=== PATIENT | female | born 1960 | race Asian ===

== ENCOUNTER → 2020-08-27 17:49 | Outpatient (CLI) | payer OTHER, SELFPAY ==
--- NOTE | ~2020-08-27 | MM_ITS ---
EXAMINATION: MM screening [facility] BI w [facility] HISTORY: Screening mammogram TECHNIQUE: Craniocaudal and mediolateral oblique 3-D tomosynthesis images were obtained and synthetic 2-D images were generated. CAD analysis was submitted and interpreted. COMPARISON: 07/26/2019, 01/27/2018, 11/28/2005 BREAST PARENCHYMAL COMPOSITION: There are scattered areas of fibroglandular density. FINDINGS: There is no evidence of suspicious mass, calcification, or architectural distortion to sugg est malignancy in either breast. There has been no suspicious interval change. IMPRESSION: 1. No mammographic evidence of malignancy. 2. Recommend routine screening mammography in one year. BI-RADS Category 1: Negative Reviewed, dictated and finalized at location A. OR SUPPORT ANALYST
== END ==
PROVIDERS: PCP Internal Medicine; Visit Provider Internal Medicine
DX: Z12.31 Encounter for screening mammogram for malignant neoplasm of breast (principal)
CPT/HCPCS: 77063; 77067

== ENCOUNTER → 2020-11-23 12:58 | Outpatient (CLI) | payer OTHER, SELFPAY ==
--- NOTE | ~2020-11-23 | DEXA_ITS ---
Bone Density Report Name: Tarah Levin Age: 60 Sex: Female Ethnicity: Date of : 1960 Indication: postmenopausal; screening for osteoporosis; height loss; Referring Provider: JUAN PABLO LEAL Study: Bone densitometry was performed. Exam Date: November 23, 2020 Accession number: [id number] Bone Density: Region BMD T-score Z-score Classification AP Spine (L1-L4) 0.929 -1.1 0.4 Osteopenia Femoral Neck (Left) 0.677 -1.5 -0.2 Osteopenia Total Hip (Left) 0.870 -0.6 0.4 Normal Femoral Neck (Right) 0.710 -1.3 0.0 Osteopenia Total Hip (Right) 0.900 -0.3 0.6 Normal Total Hip Mean 0.885 -0.5 0.5 Normal World Health Organization criteria for BMD impression classify patients as: Normal (T-score at or above -1.0), Osteopenia (T-score between -1.0 and -2.5), or Osteoporosis (T-score at or below -2.5). 10-year Fracture Risk(1): Major Osteoporotic Fracture 4.5% Hip Fracture 0.4% Reported Risk Factors: [place] (), Neck BMD=0.677, BMI=25.6 (1) FRAX(R) Version 3.08. Fracture probability calculated for an untreated patient. Fracture probability may be lower if the patient has received treatment. Clinical Information Provided by Patient: Patient maximum height was 59 Menopause Age: 54 No regular weight bearing exercise Drinks caffeinated beverages Onset of menses at age 12 Number of children 3 Impression: The patient has low bone mass, based on the Left Femoral Neck T-score. The patient has an estimated ten-year risk of hip fracture of 0.4% and an estimated ten-year risk of major fracture of 4.5%, based on the WHO FRAX algorithm. Discussion: BONE DENSITY IS LOW AT ONE OR MORE SKELETAL SITES. This patient's lowest T-score is low at one or more skeletal sites. It meets the World Health Organization's (WHO) criteria for ?low bone mass? (T-score between -1.0 and -2.5). The patient's 10-year risk of fracture as calculated by FRAX is less than the threshold where pharmacological therapy is recommended by the National Osteoporosis Foundation (NOF). However, all treatment decisions require clinical judgment and consideration of individual patient factors, including patient preferences, comorbidities, previous drug use, risk factors not captured in the FRAX model (e.g., frailty, falls, vitamin D deficiency, increased bone turnover, interval significant decline in bone density) and possible under or overestimation of fracture risk by FRAX. The patient should follow a healthful lifestyle (good nutrition with adequate calcium and vitamin D, and appropriate weight-bearing exercise). Follow-Up: Consider repeating this study in 2 to 3 years to reassess this patient's status, or sooner if there is some new clinical indication. Reported by: [facility] on 11/23/2020 1:29:00 PM.
== END ==
PROVIDERS: PCP Internal Medicine; Visit Provider Internal Medicine
DX: Z78.0 Asymptomatic menopausal state (principal); M85.88 Other specified disorders of bone density and structure, other site; M85.852 Other specified disorders of bone density and structure, left thigh; M85.851 Other specified disorders of bone density and structure, right thigh
CPT/HCPCS: 77080

== ENCOUNTER → 2023-05-15 13:26 | Outpatient (CLI) | payer BC, SELFPAY ==
--- NOTE | ~2023-05-15 | MM_ITS ---
EXAMINATION: MM screening [facility] BI w [facility] HISTORY: Screening mammogram TECHNIQUE: Craniocaudal and mediolateral oblique 3-D tomosynthesis images were obtained and synthetic 2-D images were generated. CAD analysis was submitted and interpreted. COMPARISON: 08/27/2020, 07/26/2019, 01/27/2018 BREAST PARENCHYMAL COMPOSITION: There are scattered areas of fibroglandular density. FINDINGS: No suspicious mass, calcification, or architectural distortion are identified in either yola ast to suggest malignancy. There has been no suspicious interval change. IMPRESSION: 1. No mammographic evidence of malignancy. 2. Recommend routine screening mammography in one year. BI-RADS Category 1: Negative Reviewed, dictated and finalized at location A.
== END ==
PROVIDERS: PCP Nurse Practitioner; Visit Provider Nurse Practitioner
DX: Z12.31 Encounter for screening mammogram for malignant neoplasm of breast (principal)
CPT/HCPCS: 77063; 77067

== ENCOUNTER 2023-09-24 15:13 | Outpatient (CLI) | payer BC, SELFPAY ==
--- NOTE | 2023-09-24 15:31 | ECG_ITS ---
Measurements Intervals Adams Rate: 70 P: 23 DC: 178 QRS: 41 QRSD: 77 T: 56 QT: 391 QTc: 424 Interpretive Statements SINUS RHYTHM NO PREVIOUS ECG AVAILABLE FOR COMPARISON Electronically Signed On 09-24-2023 19:19:39 SKIN INSTALLER by Jennifer Jeffery M.D.
== END 2023-09-24 15:14 | disposition home or self-care (01) ==
PROVIDERS: PCP Family Medicine; Visit Provider Nurse Practitioner Family
DX: M17.11 Unilateral primary osteoarthritis, right knee (principal); I10 Essential (primary) hypertension; E87.5 Hyperkalemia; E78.5 Hyperlipidemia, unspecified; E11.9 Type 2 diabetes mellitus without complications
CPT/HCPCS: 93005

== ENCOUNTER 2023-10-22 13:44 | Outpatient (CLI) | payer BC, SELFPAY ==
[2023-10-22 14:47] LABS: Appearance Urine Clear (Clear); Bilirubin Urine Negative (Negative); Blood Urine Negative (Negative); Color Urine Yellow (Yellow); Glucose Urine UA 3+ mg/dL (Negative); Ketones Urine Negative (Negative); Leukocyte Esterase Ur Negative LEU/UL (Negative); Nitrate Urine Negative (Negative); Protein Urine Negative (Negative); Specific Grav Ur 1.031 (1.001-1.035)
[2023-10-22 14:53] LABS: Add Urine Microscopic? NO
[2023-10-22 14:57] LABS: Albumin Level 4.4 g/dL (3.5-5.1)
[2023-10-22 14:59] LABS: INR 0.9; Partial Thromboplastin Time 28.3 SECONDS (22.3-36.8); Prothrombin Time 12.6 Seconds (11.1-14.7)
[2023-10-22 15:03] LABS: Urine Cotinine NEGATIVE
== END 2023-10-22 13:45 | disposition home or self-care (01) ==
LOC: ANHSURGERY 13:46
PROVIDERS: PCP Family Medicine; Visit Provider Orthopaedic Surgery
DX: M17.11 Unilateral primary osteoarthritis, right knee (principal); Z01.818 Encounter for other preprocedural examination
CPT/HCPCS: 80307; 81003; 82040; 85610; 85730; 86850; 86900; 86901; 87081

== ENCOUNTER 2023-11-04 01:49 | Day surgery (SDC) | payer BC, SELFPAY ==
[2023-10-22 13:51] VITALS: BMI 25.4
--- NOTE | 2023-10-22 14:12 | PC.NURSE ---
Report to the Outpatient Waiting Room, entrance under the green pavilion located off [facility], at time _0830 on date _11/04/23 . Planned Procedure Time: _1030 . Time changes happen often and if your time is changed the preop area will call you the afternoon before. - You and your visitor will be asked to self-screen and do not enter if you have any COVID symptoms. - A mask is optional within the hospital at this time. Patients may have clear liquids (water, carbonated beverages, clear teas, apple juice) until 3 hours prior to surgery( 7:30 AM) with a maximum of 20 ounces. - No food from midnight until time of surgery - Infants may have breast milk until 4 hours before surgery, infant formula 6 hours prior to surgery. - Children will be allowed to drink immediately following surgery. If applicable, please bring a bottle or sippy cup to assist with drinking. Juice, water, soda, and popsicles are readily available. For infants on formula, please bring formula the day of surgery. Pacifiers are allowed. Take the following medications with a SIP of water the morning of surgery: ____CARVEDILOL, DO NOT STOP ANY OF YOUR OTHER PRESCRIPTION MEDICATIONS PRIOR TO SURGERY ?EXCEPT THE FOLLOWING Medications to discontinue per physician HOLD ALL VITAMINS 3 DAYS PRE OP .LAST DOSE 10/31/23 Please no make-up, nail hungarian, hairspray, perfume, deodorant, or body powder the day of surgery. No jewelry (including any body piercings) or valuables the day of surgery, leave them at home. Please take a shower or bath the night before, or the morning of, surgery with an antibacterial soap. Wear comfortable, loose fitting clothing. Children are encouraged to wear pajamas. - Jewelry must be removed prior to entering the operating room. Rings and piercings that are not removed may be cut off. - The hospital will not accept responsibility for valuables. - Please leave all valuables, including medications, at home the day of surgery. If you are going home after surgery, a licensed regional dedicated truck driver must drive you home. - NO public transportation without another adult if you receive anesthesia. - We recommend that an adult stay with you for 24 hours following discharge. - We also recommend that you do not drive, make important decision, drink alcoholic beverages, or take any drugs that were not prescribed by your health care provider for at least 24 hours after your discharge time. Follow any additional instructions given to you from your surgeon. If you or anyone in your household have experienced Covid symptoms in the past week, please notify your surgeon or the nurse liaison at the phone number below for possible testing. VERBAL AND WRITTEN instructions given to __PATIENT and asked if any additional questions and then verbalized understanding. Patient advised to call surgeon office or pre surgery nurse liaison [phone] if any additional questions.
[2023-10-22 14:30] VITALS: BP 144/69; PULSE 72; RESP 18; TEMP 36.6; O2SAT 99
[2023-11-04] VITALS (13 sets, daily range): BP systolic 127–169; BP diastolic 62–94; PULSE 54–94; RESP 12–20; TEMP 36.1–36.4; O2SAT 97–100
--- NOTE | ~2023-11-04 | XR_ITS ---
EXAMINATION: [id number] DATE: 11/04/2023 12:11 INDICATION: Postoperative evaluation following right total knee arthroplasty. TECHNIQUE: Anteroposterior and lateral views of the right knee were obtained. COMPARISON: Chest FINDINGS: Right total knee arthroplasty without patellar resurfacing appears well seated and in near anatomic a lignment. No fractures identified. Skin ebenezer and expected postoperative subcutaneous and intra-ar ticular gas. IMPRESSION: 1. Right total knee arthroplasty, negative for postoperative purposes. Reviewed, dictated and finalized at location A. STITCHER HAND
--- NOTE | 2023-11-04 07:20 | WPDHPUPDATE1 ---
History and Physical Update Update Date/Time: 11/04/23 07:20 History and Physical has been reviewed, including an updated exam of the patient. There are NO changes in the patient's condition. Risks, benefits, and alternatives have been discussed and questions answered. Patient agrees to proceed with procedure.
--- NOTE | 2023-11-04 07:53 | WPDANESEPPF ---
Anes - Initial Pre Proc Eval Procedure: Operation Date: 11/04/23 10:30 Proposed Procedures p Right Total Knee Arthroplasty - Jemal Cruz MD Date/Time: 11/04/23 07:53 Surgeon: Jemal Cruz MD Pre Op Diagnosis: Right knee oa Patient Data Age: 63 Gender: F Height: 1.45 m Weight: 53.4 kg Last Vital Signs Temp 36.6 C 10/22/23 14:30 Pulse 72 10/22/23 14:30 Resp 18 10/22/23 14:30 BP 144/69 H 10/22/23 14:30 Pulse Ox 99 10/22/23 14:30 O2 Del Method Room Air 10/22/23 14:30 Allergies Allergy/AdvReac Type Severity Reaction Status Date / Time No Known Allergies Allergy Mild Verified 11/04/23 08:36 Home Medications Medication Instructions Recorded Confirmed Type carvedilol 25 mg tablet See Rx Instructions .Route 02/02/23 11/04/23 Rx .COMPLEX #180 tabs lisinopril 10 mg tablet See Rx Instructions .Route 05/11/23 11/04/23 Rx .COMPLEX #90 tabs dapagliflozin propanediol 10 mg 10 mg PO DAILY #30 tabs 05/14/23 11/04/23 Rx tablet (Farxiga) simvastatin 40 mg tablet See Rx Instructions .Route 06/15/23 11/04/23 Rx .COMPLEX #90 tabs metformin 1,000 mg tablet See Rx Instructions .Route 08/11/23 11/04/23 Rx .COMPLEX #180 tabs chlorhexidine gluconate 4 % 1 applic topical DAILY #237 mL 10/20/23 11/04/23 Rx topical liquid (Hibiclens) cholecalciferol (vitamin D3) 25 50 mcg PO DAILY 10/22/23 11/04/23 History mcg (1,000 unit) capsule omeprazole magnesium 20 mg 20 mg PO PRN PRN Heartburn 10/22/23 11/04/23 History tablet,delayed release (Prilosec OTC) Patient hx anesthesia problems: none Family hx anesthesia problems: none Results Review: All pre-operative results and documents have been reviewed as part of the pre-operative evaluation. [facility] Past Medical History Medical History (Updated 11/04/23 @ 07:53 by Ayan J. Luchtefeld, DO) Biceps tendinitis of right shoulder Diabetes Essential hypertension GERD (gastroesophageal reflux disease) Hyperlipidemia Hypovitaminosis Osteoarthritis of right knee Other fatigue Tendinitis of right rotator cuff Vitamin D deficiency Family History Family History Father Patient's father is Other Hypertension Social History Social History Smoking status: Never smoker Tobacco type: cigarettes Second hand tobacco smoke exposure: No Additional smoking assessment comments: DENIES ANY FORM OF TOBACCO USE Alcohol intake: never Substance use: never Lack of Transportation: No Lack of Food: Never True Current Housing: I Have Housing Concerned About Future Housing: No Difficulty Paying Gas/Electric Bills: No Difficulty Paying for Meds: No Currently Unemployed: No Education: High School Diploma/GED Difficulty w/ Childcare or Family Care: No Living arrangements: with family Spiritual care concerns: No Anes - Eval Final PreProcedure Day of Procedure 11/04/23 07:53 Patient weight: overweight Heart: regular rate and rhythm Lungs: clear to auscultation Airway: Mallampati scale class II Neurological: alert and oriented Last oral intake: >/= 8 hours ASA classification: III Emergent: no Anesthetic plan: proceed Anesthesia type and monitoring: general LMA and standard monitoring Results Review: All pre-operative results and documents have been reviewed as part of the pre-operative evaluation. Informed Consent: The patient's anesthetic plan and its attendant risks and benefits were discussed with the patient/family/POA. Questions were solicited and answers provided to the satisfaction of the patient/family/POA.
[2023-11-04] MEDS: ACETAMINOPHEN 500 MG TABLET 1000 MG PO (08:46)
[2023-11-04 09:08] LABS: Glucose Point of Care 107 mg/dl (65-105)
[2023-11-04] MEDS: LACTATED RINGERS 1,000 ML 30 ML IV CONT ×2 (09:15→11:56)
--- NOTE | 2023-11-04 09:30 | WPDANESPNB ---
Anes - Peripheral Nerve Block Date/Time: 11/04/23 09:30 I have discussed with the patient/family/POA the placement of a peripheral nerve block for post-operative pain management, including associated risks, benefits, complications, and side effects. Alternative methods of post-operative analgesia were detailed. Questions were solicited and answers provided to the satisfaction of the patient/family/POA. Time-Out: A pre-procedural Time-Out was completed immediately before starting the procedure and confirmed: Patient Identification, Site, Procedure, Patient Position and the Availability of Requisite Equipment. Clinical Indications: Acute post-operative pain management requested by the operative surgeon. Nerve Block Insertion Note Anes-nerve block: adductor canal right Patient position: supine Skin prep: chlorhexidine Needle: 22 gauge, stimulating, insulated echogenic needle. Needle length: 80 mm Technique: ultrasound Injectate: bupivacaine 0.5% with epi 5 mcg/ml (30cc - no epi) Observations: tolerated well Complications: none Procedure start time:: 947 Procedure end time:: 951
[2023-11-04] MEDS: TRANEXAMIC ACID 1,000MG/ISO100 1,000 MG/100 ML BAG 200 MG IVPB (09:43)
[2023-11-04] MEDS: ceFAZolin 2 GM/D5W 50 ML 2 GM/50 ML BAG IVPB ×2 (10:00→17:04)
[2023-11-04] MEDS: TRANEXAMIC ACID 1,000 MG/10 ML AMPUL 1000 MG IV PUSH (11:17)
--- NOTE | 2023-11-04 12:03 | W.PM.PROC2 ---
Procedure Note - Detailed Date of Procedure 11/04/23 Pre-op Diagnosis Right knee oa Post-op Diagnosis Same Procedure Performed R TKA Surgeon Jemal Cruz MD Anesthesia General Description of Procedure THE RIGHT KNEE WAS PREPPED AND DRAPED IN THE STERILE FASHION. THERE WAS A 10 DEGREE FLEXION CONTRACTURE. A MIDLINE SKIN INCISION WAS MADE. A MEDIAL PARAPATELLAR ARTHROTOMY WAS MADE. THE PATELLA WAS EVERTED. THERE WAS TRICOMPARTMENT DJD. THERE WAS MINIMAL PATELLA DJD. AN INTRAMEDULLARY OMAR WAS PLACED IN THE FEMUR. A DISTAL FEMORAL CUT WAS MADE IN 5 DEGREES OF VALGUS REMOVING APPROXIMATELY 9 MM OF BONE FROM THE DISTAL FEMUR. THE FEMUR WAS SIZED TO 57.5. A 57.5 FEMORAL CUTTING BLOCK WAS PLACED IN 3 DEGREES OF EXTERNAL ROTATION AND IN ALIGNMENT WITH AREN'S LINE AND THE TRANSEPICONDYLAR AXIS. ANTERIOR POSTERIOR AND CHAMFER CUTS WERE MADE. THE CUTS WERE EXCELLENT. NEXT AN INTRAMEDULLARY CUTTING GUIDE WAS PLACED IN THE TIBIA. A TRANS TIBIAL CUT WAS MADE ALONG THE LONG AXIS OF THE TIBIA. APPROXIMATELY 10 MM OF BONE WAS REMOVED FROM THE HIGH SIDE OF THE TIBIA. THE TIBIA WAS THEN PLANED TO A SMOOTH SURFACE. POSTERIOR FEMORAL OSTEOPHYTES WERE REMOVED FROM THE FEMORAL CONDYLES. A 63 TIBIAL TRIAL WAS PLACED IN ALIGNMENT WITH THE 1/3 MEDIAL ASPECT OF THE TIBIAL TUBERCLE. THEN A 57.5 FEMORAL TRIAL COMPONENT WAS PLACED. BOTH HAD EXCELLENT FITS. EVENTUALLY A 12 MM CR POLYETHYLENE TRIAL COMPONENT WAS PLACED. THE KNEE WAS TAKEN THROUGH A RANGE OF MOTION. THE KNEE CAME OUT TO FULL EXTENSION. THERE WAS NO ABNORMAL TILT TO THE PATELLA. THERE WAS GOOD A/P AND VARUS/VALGUS STABILITY. THERE WAS NO EXCESSIVE ROLL BACK WITH FLEXION. THE TRIAL COMPONENTS WERE REMOVED. THEN A 57.5 FEMORAL COMPONENT AND 63 TIBIAL COMPONENT WITH A 12 CR POLYETHYLENE COMPONENT WERE CEMENTED INTO PLACE. ONCE THE CEMENT WAS HARD THE KNEE WAS TAKEN THROUGH A ROM AGAIN AND FOUND TO BE STABLE WITH NO PATELLA TILT NO EXCESSIVE ROLL BACK WITH FLEXION AND GOOD STABILITY WITH COMPLETE AND FULL EXTENSION. THE KNEE WAS IRRIGATED WITH STERILE BETADINE AND WATER FOR ABOUT 3 MINUTES. THE BLEEDERS WERE CAUTERIZED. THE ARTHROTOMY WAS REPAIRED WITH NUMBER 1 VICRYL. THE SUB CUTANEOUS LAYER WITH 2-0 VICRYL AND THE SKIN WITH GABRIELA. THE WOUND WAS WASHED AND A STERILE DRESSING WAS APPLIED. PATIENT WAS EXTUBATED. Estimated Blood Loss -100 Pathology None sent Complications No immediate complications Condition Stable Disposition PACU
[2023-11-04 12:04] LABS: Glucose Point of Care 133 mg/dl (65-105)
[2023-11-04] MEDS: fentaNYL CITRATE INJ (*CRX) 100 MCG/2 ML VIAL 25 MCG IV PUSH ×2 (12:07→12:16)
--- NOTE | 2023-11-04 13:11 | SUR.PHASEI ---
1306 - dr. arredondo at bedside assessing patient
--- NOTE | 2023-11-04 14:03 | ADMGEN ---
This patient, Tarah Levin, was admitted to [facility] Surg Room 311-01. Patient/family oriented to hospital policies and general routines including ID bracelet, bed and alarms, visiting hours, pain management, procedures, bathroom and other care routines, personal items, smoking policy, room service/diet, and visiting hours. Information on how to activate the Rapid Response Team has been discussed. Patient/Family are encouraged to report perceived risks to care and to ask questions if they do not understand what they are told or what they should do.
[2023-11-04] MEDS: KETOROLAC 15 MG/ML VIAL (*BKC) IV PUSH ×2 (14:24→17:03)
--- NOTE | 2023-11-04 16:00 | PCPTNOTE ---
Attempted PT evaluation, pt reused due to pain. Will follow
[2023-11-04 16:41] LABS: Glucose Point of Care 212 mg/dl (65-105)
[2023-11-04] MEDS: metFORMIN HCL 500 MG TABLET 1000 MG BY MOUTH (17:03)
[2023-11-04] MEDS: SENNA/DOCUSATE SODIUM TABLET 2 TAB PO (17:03)
[2023-11-04] MEDS: ASPIRIN 325 MG ENTERIC TABLET PO (19:58)
[2023-11-04] MEDS: carvediloL 25 MG TABLET BY MOUTH (19:58)
[2023-11-04 21:14] LABS: Glucose Point of Care 197 mg/dl (65-105)
[2023-11-05 00:02] VITALS: BP 121/65; PULSE 66; RESP 16; TEMP 36.3; O2SAT 98
[2023-11-05] MEDS: KETOROLAC 15 MG/ML VIAL (*BKC) IV PUSH ×3 (01:00→11:47)
[2023-11-05] MEDS: ceFAZolin 2 GM/D5W 50 ML 2 GM/50 ML BAG IVPB ×2 (01:08→09:20)
[2023-11-05] MEDS: HYDROcodone/acetaminophen (*CRX) 5-325 MG TABLET 2 TAB PO (01:09)
[2023-11-05 05:04] VITALS: BP 121/61; PULSE 70; RESP 16; TEMP 36.2; O2SAT 98
[2023-11-05 07:02] LABS: Basophils Absolute Auto 0.1 K/mm3 (0.0-0.1); Basophils Percent Auto 0.5 % (0.2-1.2); Eosinophils Percent Auto 0.1 % (0-4.4); Hematocrit 39.9 % (37.0-47.0); Hemoglobin 12.2 g/dL (12.0-15.0); Immature Granulocyte Absolute 0.05 K/mm3 (0.00-0.031); Immature Granulocyte Percent A 0.5 % (0-0.5); Lymphocytes Absolute Auto 1.32 K/mm3 (0.9-3.2); Lymphocytes Percent Auto 12.5 % (18.3-44.2); Mean Corpuscular HGB Conc 30.6 g/dl (32-36); Mean Corpuscular Hemoglobin 27.9 pg (26-34); Mean Corpuscular Volume 91.1 fl (80-100); Mean Platelet Volume 10.3 fl (7.4-10.4); Monocytes Absolute Auto 0.9 K/mm3 (0.1-0.6); Monocytes Percent Auto 8.6 % (2.6-8.5); Neutrophils Absolute Auto 8.2 K/mm3 (1.3-6.7); Neutrophils Percent Auto 77.8 % (45.5-73.1); Platelet Count Result 226 k/mm3 (150-375); Red Blood Count 4.38 M/mm3 (4.2-5.4); Red Cell Distribution Width 12.7 % (11.5-14.5); White Blood Count 10.5 K/mm3 (4.5-10.0)
[2023-11-05 07:17] LABS: Anion Gap 6 mmol/L (8-16); Blood Urea Nitrogen 25 mg/dL (7-17); Calcium 8.6 mg/dL (8.4-10.2); Carbon Dioxide 29 mmol/L (22-30); Chloride 105 mmol/L (98-107); Estimated Glomerular Filt Rate > 60; Glucose 132 mg/dL (65-110); Potassium 3.6 mmol/L (3.4-5.0); Sodium 140 mmol/L (137-145)
[2023-11-05 07:28] VITALS: BP 122/56; PULSE 72; RESP 17; TEMP 35.9; O2SAT 97
[2023-11-05 07:44] LABS: Glucose Point of Care 195 mg/dl (65-105)
[2023-11-05] MEDS: lisinopriL 10 MG TABLET BY MOUTH (09:20)
[2023-11-05] MEDS: metFORMIN HCL 500 MG TABLET 1000 MG BY MOUTH (09:21)
[2023-11-05] MEDS: oxyCODONE/ACETAMINOPHEN (*CRX) 5-325 MG TABLET 1 TABLET PO (09:21)
[2023-11-05] MEDS: ASPIRIN 325 MG ENTERIC TABLET PO (09:21)
[2023-11-05] MEDS: CHOLECALCIFEROL 1,000 UNITS TABLET 2000 UNITS PO (09:21)
[2023-11-05] MEDS: SIMVASTATIN 20 MG TABLET 40 MG BY MOUTH (09:21)
[2023-11-05] MEDS: polyethylene glycoL 3350 17 GM POWD.PACK PO (09:21)
[2023-11-05] MEDS: carvediloL 25 MG TABLET BY MOUTH (09:21)
[2023-11-05] MEDS: EMPAGLIFLOZIN 25 MG TABLET BY MOUTH (09:21)
[2023-11-05] MEDS: SENNA/DOCUSATE SODIUM TABLET 2 TAB PO (09:22)
--- NOTE | 2023-11-05 10:02 | P.PNAN_ITS ---
Anes - Prog Note Post-Op Date/Time: 11/05/23 10:02 Cardiovascular status: normal Respiratory status: normal Airway patency: baseline Mental status: baseline Post-Op hydration status: normal Vital Signs: Last Vital Signs Temp 35.9 C L 11/05/23 07:28 Pulse 72 11/05/23 07:28 Resp 17 11/05/23 07:28 BP 122/56 L 11/05/23 07:28 Pulse Ox 97 11/05/23 07:28 O2 Del Method Room Air 11/05/23 08:27 O2 Flow Rate 2 11/04/23 13:40 Pain Score (VAS): 0 I/O: Intake & Output 11/04/23 11/05/23 11/05/23 23:59 07:59 15:59 Intake Total 290 50 Balance 290 50 Laboratory Tests 11/05/23 06:20 11/05/23 06:20 11/04/23 11/04/23 11/04/23 12:00 16:39 21:09 WBC RBC Hgb Hct MCV MCH MCHC RDW Plt Count MPV Immature Gran % (Auto) Neut % (Auto) Lymph % (Auto) [place] % (Auto) Eos % (Auto) Baso % (Auto) Lymph # (Auto) [place] # (Auto) Eos # (Auto) Baso # (Auto) Abs Immat Gran (auto) Absolute Neuts (auto) Absolute Nucleated RBC Nucleated RBC % Sodium Potassium Chloride Carbon Dioxide Anion Gap BUN Creatinine Estim Creat Clear Calc Estimated GFR Glucose POC Capillary Glucose 133 H 212 H 197 H Calcium 11/05/23 11/05/23 06:20 07:38 WBC 10.5 H RBC 4.38 Hgb 12.2 Hct 39.9 MCV 91.1 MCH 27.9 MCHC 30.6 L RDW 12.7 Plt Count 226 MPV 10.3 Immature Gran % (Auto) 0.5 Neut % (Auto) 77.8 H Lymph % (Auto) 12.5 L [place] % (Auto) 8.6 H Eos % (Auto) 0.1 Baso % (Auto) 0.5 Lymph # (Auto) 1.32 [place] # (Auto) 0.9 H Eos # (Auto) 0.0 Baso # (Auto) 0.1 Abs Immat Gran (auto) 0.05 H Absolute Neuts (auto) 8.2 H Absolute Nucleated RBC 0.0 Nucleated RBC % 0.0 Sodium 140 Potassium 3.6 Chloride 105 Carbon Dioxide 29 Anion Gap 6 L BUN 25 H Creatinine 0.50 L Estim Creat Clear Calc Not Reportable Estimated GFR > 60 Glucose 132 H POC Capillary Glucose 195 H Calcium 8.6 Post-procedural complaints: none Patient Feedback: Patient satisfied with anesthetic care.
--- NOTE | 2023-11-05 10:13 | PM.PNORT ---
Progress Note: A&P Assessment and Plan (1) S/P total knee arthroplasty: Qualifiers: Laterality: right Qualified Code(s): Z96.651 - Presence of right artificial knee joint Code(s): Z96.659 - Presence of unspecified artificial knee joint Status: Acute Assessment and Plan: POD #1: Right TKA Continue PT/OT. WBAT. Walker. HIGH FALL RISK. Continue pain control. Ice Knee. Protect skin. DVT prophylaxis with Aspirin. SCDs. Incentive Spirometry Use reviewed. Monitor Dressing. Change prior to discharge. Bowel Regimen. Dispo: Home with Home Health pending progress with PT/OT Plan Reviewed history, exam, radiographs and current labs with attending MD and surgeon, Dr. Cruz, who agrees with current plan as indicated above. No further recommendations from Dr. Cruz at this time. Subjective Subjective Date/Time Seen: 11/05/23 10:13 Post Op day: 1 Interval history: POD #1: Right TKA Patient doing well. Pain well controlled. Sitting up in chair. Hopeful for discharge home. Review of Systems Review of Systems: All systems reviewed & are unremarkable except as noted in HPI and below Constitutional: Constitutional: Denies fever(s) and Denies headache(s) ENT: Denies headache(s) Cardiovascular: Cardiovascular: Denies chest pain, Denies diaphoresis, Denies palpitations and Denies dyspnea Respiratory: Respiratory: Denies dyspnea Gastrointestinal: Gastrointestinal: Denies abdominal pain, Denies constipation, Denies nausea and Denies vomiting Genitourinary: Genitourinary: Reports nocturia and Denies dysuria Musculoskeletal: Musculoskeletal: Reports arthralgias (Right Knee ) and Reports joint swelling (Right Knee ) Neurologic: Denies headache(s) Endocrine: Endocrine: Denies palpitations Exam Const: General: comfortable and no acute distress Resp: Effort & Inspection: normal respiratory effort Cardio: Rate: regular rate Rhythm: regular rhythm GI: GI Palp: Yes Soft to palpation, No Tenderness to palpation present (GI) and No Guarding due to palpation present (GI) Skin: General skin exam: wounds noted Wounds: wounds noted Other: Incision c/d/i. No surrounding redness/warmth. No hematoma. Mild ecchymosis. No wound dehiscence Neuro: Cognition (Neuro): normal cognition Other: NV intact aside from block. Moves toes. Sensation intact to light touch. +ankle dorsiflexion/plantarflexion. Extrem: Right lower extremity: normal to inspection, knee Details: tenderness (diffuse, mild ) Location: of the patella, swelling (diffuse, consistent with surgical intervention ), abnormal ROM Details: pain with active ROM during, pain with passive ROM during and with range as follows (limited due to recent surgical intervention ); able to extend lower leg actively and ecchymosis (mild ), lower leg (Negative Zuleika's Sign ) Details: normal to inspection; no erythema and no tenderness, ankle (+ankle dorsiflexion/plantarflexion ) Details: normal to inspection, no edema and normal ROM; no tenderness, no swelling and no ecchymosis and foot Details: normal capillary refill, normal to inspection, vascular exam Details: dorsalis pedis pulse present and motor-sensory exam Details: light-touch normal; no tenderness Left lower extremity: normal to inspection Psych: Mental Status: mental status grossly normal Objective Data Vital Signs Vital Signs: Vital Signs - 24 hr 11/04/23 11:56 11/04/23 12:10 11/04/23 12:25 Temperature 36.3 C L Pulse Rate 78 59 L 54 L Respiratory Rate 18 12 12 Blood Pressure 151/94 H 154/76 H 162/71 H Pulse Oximetry 99 99 99 Oxygen Delivery Simple Face Mask Simple Face Mask Simple Face Mask Oxygen Flow Rate 6 6 6 11/04/23 12:40 11/04/23 12:55 11/04/23 13:10 Temperature Pulse Rate 58 L 56 L 58 L Respiratory Rate 14 14 13 Blood Pressure 137/62 149/74 H 156/71 H Pulse Oximetry 97 99 99 Oxygen Delivery Nasal Cannula Nasal Cannula Nasal Cannula Oxygen Flow Rat
[2023-11-05 11:28] VITALS: BP 117/66; PULSE 74; RESP 17; TEMP 36.3; O2SAT 100
[2023-11-05 11:43] LABS: Glucose Point of Care 144 mg/dl (65-105)
--- NOTE | 2023-11-05 15:09 | PM.DS ---
DS: Admitting Diagnosis Discharge Date 11/05/23 Admitting Diagnosis Right Knee DJD DS: Discharge Diagnosis Discharge Diagnosis (1) S/P total knee arthroplasty: Qualifiers: Laterality: right Qualified Code(s): Z96.651 - Presence of right artificial knee joint Code(s): Z96.659 - Presence of unspecified artificial knee joint Status: Acute Assessment and Plan: POD #1: Right TKA Continue PT/OT. WBAT. Walker. HIGH FALL RISK. Continue pain control. Ice Knee. Protect skin. DVT prophylaxis with Aspirin. SCDs. Incentive Spirometry Use reviewed. Monitor Dressing. Change prior to discharge. Bowel Regimen. Dispo: Home with Home Health pending progress with PT/OT Plan Reviewed history, exam, radiographs and current labs with attending MD and surgeon, Dr. Cruz, who agrees with current plan as indicated above. No further recommendations from Dr. Cruz at this time. DS: Summary Hospital Course Reason for hospitalization: Right TKA Hospital Course: 63 year old female admitted s/p Right TKA for postoperative medical management, pain control and mobilization with PT/OT. Patient progressed well with PT/OT. Pain and vitals remained stable throughout. The patient has been cleared to be discharged home with home health at this time. All discharge care instructions reviewed at depth. New medications reviewed. Follow up planned for 3 weeks in the outpatient orthopedic clinic with Dr. Cruz. Dr. Cruz in agreement with safe discharge at this time. Status at Discharge Functional status at discharge: uses cane/walker Overall status at discharge: patient is progressing back to baseline Time Spent with Patient Time attestation: Total time spent providing and/or coordinating discharge services: Exam Const: General: comfortable and no acute distress Resp: Effort & Inspection: normal respiratory effort Cardio: Rate: regular rate Rhythm: regular rhythm Skin: General skin exam: wounds noted Wounds: wounds noted Other: Incision c/d/i. No surrounding redness/warmth. No hematoma. Mild ecchymosis. No wound dehiscence Neuro: Cognition (Neuro): normal cognition Other: NV intact aside from block. Moves toes. Sensation intact to light touch. +ankle dorsiflexion/plantarflexion. Extrem: Right lower extremity: normal to inspection, knee Details: tenderness (diffuse, mild ) Location: of the patella, swelling (diffuse, consistent with surgical intervention ), abnormal ROM Details: pain with active ROM during, pain with passive ROM during and with range as follows (limited due to recent surgical intervention ); able to extend lower leg actively and ecchymosis (mild ), lower leg (Negative Zuleika's Sign ) Details: normal to inspection; no erythema and no tenderness, ankle (+ankle dorsiflexion/plantarflexion ) Details: normal to inspection, no edema and normal ROM; no tenderness, no swelling and no ecchymosis and foot Details: normal capillary refill, normal to inspection, vascular exam Details: dorsalis pedis pulse present and motor-sensory exam Details: light-touch normal; no tenderness Left lower extremity: normal to inspection Psych: Mental Status: mental status grossly normal DS: Data Data Completed and Pending Labs on day of discharge: Labs from last 24 hours 11/05/23 11/05/23 11/05/23 11:41 07:38 06:20 WBC 10.5 H RBC 4.38 Hgb 12.2 Hct 39.9 MCV 91.1 MCH 27.9 MCHC 30.6 L RDW 12.7 Plt Count 226 MPV 10.3 Immature Gran % (Auto) 0.5 Neut % (Auto) 77.8 H Lymph % (Auto) 12.5 L [place] % (Auto) 8.6 H Eos % (Auto) 0.1 Baso % (Auto) 0.5 Lymph # (Auto) 1.32 [place] # (Auto) 0.9 H Eos # (Auto) 0.0 Baso # (Auto) 0.1 Abs Immat Gran (auto) 0.05 H Absolute Neuts (auto) 8.2 H Absolute Nucleated RBC 0.0 Nucleated RBC % 0.0 Sodium 140 Potassium 3.6 Chloride 105 Carbon Dioxide 29 Anion Gap 6 L BUN 25 H Crea
== END 2023-11-05 15:33 | disposition home health service (06) ==
LOC: ANHSURGERY 08:17 → ANH3MEDSUR 13:48
PROVIDERS: PCP Nurse Practitioner Family; Visit Provider Orthopaedic Surgery
PROC: (CPT 27447; principal; 2023-11-04 10:30)
DX: M17.11 Unilateral primary osteoarthritis, right knee (principal); G89.18 Other acute postprocedural pain; E11.9 Type 2 diabetes mellitus without complications; I10 Essential (primary) hypertension; E78.5 Hyperlipidemia, unspecified; K21.9 Gastro-esophageal reflux disease without esophagitis; E55.9 Vitamin D deficiency, unspecified; Z79.84 Long term (current) use of oral hypoglycemic drugs
CPT/HCPCS: 27447; 64447; 36415; 73560; 80048; 82948; 85025; 97110; 97116; 97161; 97165; 97530; 97535; A9270; C1713; C1776; J0171; J0690; J1100; J1885; J2250; J2270; J2405; J2704; J2795; J3010; J7120

== ENCOUNTER 2024-03-01 12:21 | Outpatient (CLI) | payer BC, SELFPAY ==
--- NOTE | ~2024-03-01 | DEXA_ITS ---
Bone Density Report Name: JIMY IKNG Age: 63 Sex: Female Ethnicity: Date of : 1960 Indication: osteopenia; height loss; postmenopausal Referring Provider: RUI CALDERON Study: Bone densitometry was performed. Exam Date: March 01, 2024 Accession number: [id number] Bone Density: Region BMD T-score Z-score Classification AP Spine (L1-L4) 0.822 -2.0 -0.4 Osteopenia Femoral Neck (Left) 0.636 -1.9 -0.5 Osteopenia Total Hip (Left) 0.831 -0.9 0.2 Normal Femoral Neck (Right) 0.619 -2.1 -0.6 Osteopenia Total Hip (Right) 0.825 -1.0 0.2 Normal Total Hip Mean 0.828 -1.0 0.2 Normal World Health Organization criteria for BMD impression classify patients as: Normal (T-score at or above -1.0), Osteopenia (T-score between -1.0 and -2.5), or Osteoporosis (T-score at or below -2.5). 10-year Fracture Risk(1): Major Osteoporotic Fracture 5.8% Hip Fracture 0.8% Reported Risk Factors: [place] (), Neck BMD=0.619, BMI=25.5 (1) FRAX(R) Version 3.08. Fracture probability calculated for an untreated patient. Fracture probability may be lower if the patient has received treatment. Previous Exams: Region Exam Age BMD T-score BMD Change BMD Change Date g/cm2 vs Baseline vs Previous AP Spine(L1-L4) 03/01/2024 63 0.822 -2.0 -0.108* -0.108* 11/23/2020 60 0.929 -1.1 Total Hip(Left) 03/01/2024 63 0.831 -0.9 -0.040* -0.040* 11/23/2020 60 0.870 -0.6 Total Hip(Right) 03/01/2024 63 0.825 -1.0 -0.075* -0.075* 11/23/2020 60 0.900 -0.3 *Denotes significance at 95% confidence level, LSC for AP Spine = 0.022 g/cm2, LSC for Total Hip = 0.027 g/cm2 Clinical Information Provided by Patient: Has used the following medications: Vitamin D Patient maximum height was 59.0 Menopause Age: 54 No regular weight bearing exercise Drinks caffeinated beverages Onset of menses at age 12 Number of children 3 Impression: The patient has low bone mass, based on the Right Femoral Neck T-score. The patient has an estimated ten-year risk of hip fracture of 0.8% and an estimated ten-year risk of major fracture of 5.8%, based on the WHO FRAX algorithm. The BMD for the AP Spine(L1-L4) decreased, changing by -0.108 since the last DXA exam. The BMD for the Total Hip(Left) decreased, changing by -0.040 since the last DXA exam. The BMD for the Total Hip(Right) decreased, changing by -0.075 since the last DXA exam.
== END 2024-03-01 12:22 ==
PROVIDERS: PCP Nurse Practitioner Family; Visit Provider Nurse Practitioner Family
DX: Z13.820 Encounter for screening for osteoporosis (principal); Z78.0 Asymptomatic menopausal state; M85.88 Other specified disorders of bone density and structure, other site; M85.852 Other specified disorders of bone density and structure, left thigh; M85.851 Other specified disorders of bone density and structure, right thigh
CPT/HCPCS: 77080

== ENCOUNTER 2024-10-10 08:43 | Outpatient (CLI) | payer BC, SELFPAY ==
--- NOTE | ~2024-10-10 | MM_ITS ---
EXAMINATION: MM screening jaymie BI w gerson HISTORY: Screening TECHNIQUE: Craniocaudal and mediolateral oblique 3-D tomosynthesis images were obtained and synthetic 2-D images were generated. CAD analysis was submitted and interpreted. COMPARISON: 05/15/2023 and dating back to 07/26/2019 BREAST PARENCHYMAL COMPOSITION: The breasts are heterogeneously dense, which may obscure small masses . FINDINGS: Stable parenchymal pattern without suspicious microcalcifications, architectural distortion, discrete masses or significant asymmetry. Punctate calcifications detected bilaterally, stable and benign in appearance. IMPRESSION: 1. No mammographic evidence of malignancy. 2. Recommend routine screening mammography in one year. BI-RADS Category 2: Benign findings. Reviewed, dictated and finalized at location A. 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
--- OUTSIDE RECORDS SUMMARY | 2024-10-17 20:53 | XMS_ITS | Data Portability ---
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 Plan of Treatment Reminders Order Date Submit Date Provider Last Modified By Organization Details Last Modified Time Details Appointments None recorded. Lab lipid panel, serum 2018 019 [facility], [address] [place] [address], [address], [place], [address], 9 16:24:43 TSH, ultra-sens itive, serum 2018 019 [facility], [address] [place] [address], [address], [place], [address], 9 16:24:43 CMP, serum or plasma 2018 019 [facility], [address] [place] [address], [address], [place], [address], 9 16:24:42 Referral gastroente rologist referral 2018 019 [email or web address] Charles Rodriguez MD, [address], [place], [address], 9 15:27:02 diabetic ophthalmol ogy referral 2018 019 heath Mazariegos, [address], [place], [address], 9 19:31:01 Procedures None recorded. Surgeries None recorded. Imaging None recorded. Medication Orders Medrol (Cliff) 4 mg tablets in a dose pack 2018 019 [id number], [address] [place], [address], 9 12:49:37 benzonatat e 100 mg capsule 2018 019 [id number], [address] [place], [address], 9 12:51:10 levofloxac in 500 mg tablet 2018 019 [id number], [address] [place], [address], 9 12:43:32 Patient TargetsNo targets recorded. Patient Instructions Encounter Date Encounter Id Patient Instructions Last Modified By Organization Details Last Modified Time 10/21/2018 [id number] learning about type 2 diabetes [email or web address] Not available 10/21/2018 16:24:30 type 2 diabetes: care instructions [email or web address] Not available 10/21/2018 16:24:30 learning about high blood pressure [email or web address] Not available 10/21/2018 16:24:30 12/07/2018 [id number] upper respirator y infection (cold): care instructions [email or web address] Not available 12/07/2018 12:49:34 viral respirator y infection: care instructions [email or web address] Not available 12/07/2018 12:49:34 cough: care instructions [email or web address] Not available 12/07/2018 12:51:09 12/13/2018 [id number] learning about type 2 diabetes [email or web address] Not available 12/13/2018 12:43:30 type 2 diabetes: care instructions [email or web address] Not available 12/13/2018 12:43:30 Go to ED if symptoms are getting worse despite being on antibiotics or if blood sugars are going higher. 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 [facility] (Imaging) [address] [place] [address], [phone], 12/21/2018 14:37:18 12/14/19 19 12/14/2018 XR, chest , 2 view No observ ation record ed. [facility] (Imaging) [address] [place] [address], [phone], 12/21/2018 14:37:00 Result Notes None recorded. Problems Name Problem SNOMED Code Status Onset Date Resolution Date Notes Provider Name and Address Organization Details Recorded Time Hypertensive disorder 63294013 Active 2018 ARIEL Good[place], [place] - [facility] 9 15:36:32 Hyperchloremia 97000884 Active 2018 ARIEL [place], [place] - [facility] 9 15:36:38 Type 2 diabetes mellitus 50518915 Active 2018 ARIEL [place], [place] - [facility] 9 15:36:45 Arthritis 9948919 Active 2018 ARIEL [place], [place] - [facility] 9 15:40:32 Problem Notes None recorded. Procedures Surgical History None recorded. Imaging Results Imaging Date Name Status LastModified by Organiz ation Details LastModified Time 12/14/2018 CT, brain, w/o contrast completed [facility] (Imaging) [address] [facility], [place], [address], 12/21/2018 14:37:18 12/14/2018 XR, chest, 2 view completed [facility] (Imaging) [address] [facility], [place], [address], 12/21/2018 14:37:00 Procedure Notes None recorded. Medical Equipment None Reported. Allergies No known drug allergies Medications Name Sig Start Date Stop Date Status Note LastModified by Organization Details LastModified Time carvedilol 25 mg tablet TAKE 1 TABLET BY MOUTH TWICE A DAY active Not Available Not Available No t Available simvastatin 40 mg tablet TAKE 1 TABLET BY MOUTH EVERYDAY AT BEDTIME active Not Available Not Available No t Available glimepiride 1 mg tablet active Not Available Not Available Not Available benzonatate 100 mg capsule Take 1 capsule 3 times a day by oral route as needed. active Not Available Not Available No t Available metformin 1,000 mg tablet TAKE 1 TABLET BY MOUTH TWICE A DAY WITH FOOD active Not Available Not Available No t Available hydrochloro thiazide 25 mg tablet TAKE 1 TABLET BY MOUTH EVERY DAY 2018 active Not Available Not Available Not Avai lable levofloxaci n 500 mg tablet Take 1 tablet every 24 hours by oral route. active Not Available Not Available No t Available methylpredn isolone 4 mg tablets in a dose pack Take 1 dose pk by oral route as directed. active Not Available Not Available No t Available metformin ER 500 mg tablet,exte nded release 24 hr Take 1 tablet every day by oral route. active Not Available Not Available No t Available amoxicillin 875 mg-potassiu m clavulanate 125 mg tablet 12/07 completed Not Available Not Available Not Available azithromyci n 500 mg tablet active Not Available Not Available Not Available Vitals Date Recorded Body height Body mass index (BMI) Body weight Body temperature Oxygen saturation Oxygen saturation in Arterial blood by Pulse oximetry Heart rate Systolic blood pressure Diastolic blood pressure Provider Name and Address Organization Details Last Updated DateTime 9 146.05 cm 26.8 kg/m2 03250.6 4 g 98.2 [degF] 97 % 97 % 77 /min 108 mm[Hg] 70 mm[Hg] Angelica Limon [place] - [facility] 9 15:44:51 Date Recorded Body height Body mass index (BMI) Body weight Body temperature Oxygen saturation Oxygen saturation in Arterial blood by Pulse oximetry Heart rate Systolic blood pressure Diastolic blood pressure Provider Name and Address Organization Details Last Updated DateTime 9 146.05 cm 26.6 kg/m2 05188.0 5 g 98.4 [degF] 99 % 99 % 77 /min 126 mm[Hg] 78 mm[Hg] LEO Marcelino NP Attn: Nicole magaña,[address] [facility], [place], [address], [facility] 9 12:35:10 Date Recorded Body height Body mass index (BMI) Body weight Body temperature Heart rate Oxygen saturation Oxygen saturation in Arterial blood by Pulse oximetry Systolic blood pressure Diastolic blood pressure Provider Name and Address Organization Details Last Updated DateTime 9 146.05 cm 25.7 kg/m2 95087.6 8 g 98.4 [degF] 75 /min 981 % 981 % 98 mm[Hg] 58 mm[Hg] Coco Simon MA [facility] 9 12:17:03 Social History Question Answer Notes LastModified by Organizat ion Details LastModified Time Tobacco Smoking Status Never Smoker Angelica Limon MA null, [facility] 10/21/2018 15:37:22 Do You Have An Advance Directive? No Information not available 10/21/2018 What Is Your Level Of Alcohol Consumption? Occasional Information not available 10/21/2018 What Is Your Level Of Caffeine Consumption? Moderate Information not available 10/21/2018 How Much Tobacco Do You Chew? None Information not available 10/21/2018 Are You Currently Employed? Yes Information not available 10/21/2018 What Type Of Diet Are You Following? REGULAR Information not available 10/21/2018 Which Illicit Or Recreational Drugs Have You Used? None Information not available 10/21/2018 Education 12 Information no t available 10/21/2018 What Is Your Occupation? [employer] Information not available 10/21/2018 Are There Any Guns Present In Your Home? No Information not available 10/21/2018 Hard Of Hearing Or Deaf In One Or Both Ears? No Information not available 10/21/2018 Legally Blind In One Or Both Eyes? No Information no t available 10/21/2018 Live Alone Or With Others? With Others Information not available 10/21/2018 What Was The Date Of Your Most Recent Tobacco Screening? 12/13/2018 Information not available 05/12/2019 How Many Children Do You Have? 3 Information not available 10/21/2018 Do You Use Protection During Sex? Always Information not available 10/21/2018 Are You Sexually Active? Yes Information not available 10/21/2018 Smoke Alarm In Home Yes Information not available 10/21/2018 Are You Passively Exposed To Smoke? No Information no t available 10/21/2018 General Stress Level Low Information not available 10/21/2018 Sex: Unknown Functional Status Question Answer Note LastModified by Organization D etails LastModified Time Are you able to care for yourself? Yes Information n ot available 10/21/2018 What is your exercise level? None Information not available 10/21/2018 Mental Status None recorded. Family History Nothing Reported. Medical History Condition Response Coronary Artery Disease N Other N Atrial Fibrillation N High Blood Pressure N Depression N COPD N Blood Clots N Anxiety Disorder N Muscle, Joint, or Bone Problems N Acid Reflux (GERD) N Cancer N Stroke N Headaches N Kidney or Bladder Problems N Skin Problems N Asthma N Allergies N Hepatitis N High Cholesterol N Liver Disease N Thyroid Problems N GI Problems N Anemia N Heart Attack (CA) N Diabetes N Seizures/Epilepsy N Heart Failure N Osteoporosis N Gynecological HistoryNo gynecological history recorded. Obstetrics History GPAL:G 3 P 0 0 0 3 Type Value Living 3 Total 3 Past Encounters Encounter ID Performer Location Encounter Start Date Encounter Closed Date Diagnosis/Indication Diagnosis SNOMED-CT Code Diagnosis ICD10 Code [id number] Arden Victoria MD [facility] [address] [place] [address] 10/21/2018 15:12:40 10/27/2018 15:27:01 Acute bilateral otitis media 026627378 H66.93 Painless r ectal bleeding 311572789 K62.5 Type 2 lisa betes mellitus 76615635 E11.65 Mixed hyperlipidemia 267 677615 E78.2 Essential hypertension 71803230 I10 [id number] LEO Marcelino NP [facility] [address] [place] [address] 12/07/2018 11:39:11 12/07/2018 14:45:27 Common cold 47343699 J00 Cough 59663727 R05 [id number] Arden Victoria MD [facility] [address] [place] [address] 12/13/2018 11:55:56 12/17/2018 08:23:57 Type 2 diabetes mellitus 34114387 E11.65 Acute bila teral otitis media 844876836 H66.93 Persistent cough 2170705 02 R05 Health Concerns Section Related Observation LastModified by Organization Detai ls LastModified Time None Recorded Concern Status LastModified by Organization Details LastModified Time None Recorded Advance Directives Directive N: Payers Encounter Date Sequence Insurance Name Policy Number Policy Hodge Covered Member ID Hodge Member ID Guarantor Name 10/21/2018 1 [facility] [employer]berforce Levin [id number] Tarah D Levin 12/07/2018 1 [facility] [employer] Levin [id number] Wilberforce D Levin 12/13/2018 1 [facility] [employer] Tarah Levin [id number] Tarah D Levin Notes Date Note Type Note Provider Name and Address Organization Details Recorded Time 10/21/19 19 text/htm l Diabetes F/UReported bypatient.Labs:last A1C result: 6.6 Context:seeing eye doctor regularly; checking feet regularly; not missing doses of medications; no side effects from medications; takes metformin and glimepiride for control of blood sugars. Associated Symptoms:no weight gain; no headaches; no calluses on feet;increased thirst;increased urinationEaracheReported bypatient.Location:bilateral Quality:aching Severity:continuous Duration:intermittent Timing:gradual Context:sick contact;history of ear aches/ear infections;recent air travel Modifying Factors:hurts to lie on, or pull on ear;hurts to chew Associated Symptoms:no discharge from the ears; no hearing loss; no ringing in the ears;nose/sinus problems;popping noise in the earsHyperlipidemiaReported bypatient.Type of hyperlipidemia:combined Duration:chronic Control:improving Current Therapy:currently taking: (simvastatin) Compliance:compliant with diet; exercises Complications:no coronary artery disease Risk Factors:positive family history of premature arteriosclerotic cardiovascular disease;diabetes;hypertension; smokingHypertension F/UReported bypatient.Associated Symptoms:no dizziness; no chest pain; no shortness of breath; no palpitations; no edema Lifestyle:regular exercise Medications:taking medications as directed; no side effects from medicationNotes:takes carvedilol and hydrochlorothiazide for control of blood pressure.Rectal BleedingReported bypatient.Quality:painless Severity:moderate Duration:present <1 month Timing:sudden Context:occurs with bowel movement Associated Symptoms:no straining; no diarrhea; no crampingNotes:had a previous normal colonoscopy years ago. Arden Victoria MD Attn: [facility],[address] [place], [address], [facility] 10/23/2018 16:40:02 12/07/19 text/htm l Patient presents today for c/o runny nose, headache, sore throat, cough, left ear pressure that started yesterday. Taking mucinex prn otc without relief. Denies wheezing. LEO Marcelino NP Attn: [facility],[address] [place] [address], [phone], [facility] 12/07/2018 16:53:41 12/13/19 text/htm l CoughReported bypatient.Quality:harsh Severity:worsening;pain with cough; severe Duration:symptoms lasting over 2 weeks Timing:worse; sudden Context:non-smoker;worse at night;history of asthma;history of bronchitis Associated Symptoms:no heartburn; no nausea; no vomiting;fever;chills;chest pain;wheezing;post nasal drip; bilateral ear pain, nasal congestion, sore anterior cervical nodes. Arden Victoria MD Attn: [facility],[address] [place] [address], [phone], [facility] 12/17/2018 00:14:25 OBGyn Episode No OBEpisode recorded.
== END 2024-10-10 08:44 | disposition home or self-care (01) ==
LOC: ANHIMG 08:44
PROVIDERS: PCP Nurse Practitioner Family; Visit Provider Nurse Practitioner Family
DX: Z12.31 Encounter for screening mammogram for malignant neoplasm of breast (principal)
CPT/HCPCS: 77063; 77067